=== PATIENT | male | born 1990 | race Caucasian/White ===

== ENCOUNTER → 2017-05-26 | Outpatient (CLI) | payer BC ==
[2017-05-26 11:57] LABS: Specimen Source URINE
[2017-05-27 15:17] LABS: Source Urine
== END ==
LOC: LAB EV 11:54
PROVIDERS: Family Medicine
DX: Z20.9 Contact with and (suspected) exposure to unspecified communicable disease (principal)
CPT/HCPCS: 87491; 87591